=== PATIENT | male | born 1945 | race Caucasian/White ===

== ENCOUNTER 2017-01-25 05:31 | Day surgery (SDC) | payer OTHER ==
[~2017-01-25] VITALS: Ht 177.8 cm; Wt 88.9 kg
--- NOTE | ~2017-01-25 | O ---
[facility] [place] [address] OPERATIVE REPORT Name: JORDYN HUGHES Room #: DEP [facility]..#: [id number] Admission: 01/25/17 Attend Phys: Derian Angeles MD Discharge: 01/25/17 Date of : 41 Report #: [id number] THIS REPORT FOR: //name// CC: Nawaf Angeles DATE OF SERVICE: 01/25/2017 PATIENT OF: Dr. Derian Angeles and Dr. Nawaf Luke Jr. PREOPERATIVE DIAGNOSIS: Left inguinal hernia. POSTOPERATIVE DIAGNOSES: Left inguinal hernia with left cord lipoma. PROCEDURE: Left inguinal hernia repair with Prolene hernia system mesh and excision of left cord lipoma. SURGEON: Derian Angeles MD ANESTHESIA: Local IV sedation. DESCRIPTION OF PROCEDURE: The patient was brought to the operating room and placed on operative table in the supine position. Sequential compression devices were in place for DVT prophylaxis. There was no indication for preoperative antibiotics. The patient underwent IV sedation. Left inguinal area was then prepped and draped in a sterile fashion. Skin and subcutaneous tissue were then infiltrated with 0.5% Marcaine and 1% Xylocaine in a 1:1 mixture. A left inguinal skin incision was then performed using #10 scalpel blade. Hemostasis obtained using electrocautery as well as clamps and 2-0 chromic ties. Dissection was carried down to the external oblique fascia, which was then incised with a knife and opened with the Metzenbaum scissors. The ilioinguinal nerve was identified, dissected free and injected with a local mixture and preserved. The cord was then elevated and held into place with a Rumsey drain. Cremasteric muscle fibers were then split in the direction of their fibers using clamp and electrocautery. Two cord lipomas were identified, dissected free, clamped, excised and tied with 2-0 chromic ties. An indirect inguinal hernia sac was then identified and dissected free from the cord and reduced back into the preperitoneal space through the internal ring. An extended Prolene hernia system mesh was then inserted through the internal ring and the underlay patch was then deployed in the inguinal canal. The overlay patch was secured at the pubic tubercle superiorly and at the connector using simple interrupted 2-0 Vicryl sutures. The mesh was split and wrapped around the cord, secured to the inguinal ligament with simple interrupted 2-0 Vicryl suture. The cord and ilioinguinal nerve were then returned to the canal intact. The external oblique fascia was then closed using a running 2-0 Vicryl suture. [facility] [address] [place] [address] OPERATIVE REPORT Name: MAYURICRISSYJORDYN SIFUENTES Room #: DEP [facility].R.#: [id number] Admission: 01/25/17 Attend Phys: Derian Angeles MD Discharge: 01/25/17 Date of : 41 Report #: [id number] Irma's fascia was then reapproximated using 3 simple interrupted 2-0 chromic sutures and the skin then closed with a running 4-0 subcuticular Vicryl stitch. The wound was then dressed with Mastisol, 1/2-inch Steri-Strips cut in half, Telfa, 4 x 4 gauze, sponge and tape. The patient was then taken to the recovery room awake, alert and in good condition. Estimated blood loss was approximately 10 mL and the patient tolerated procedure well. All sponge, lap and instrument counts correct times 2. <ELECTRONICALLY SIGNED> By: Derian Angeles MD 01/28/17 1435 1255 [id number] Derian Angeles MD /nt
--- NOTE | ~2017-01-25 | S ---
[facility] [employer] [place] [address] SURGICAL PATH RPT PROCEDURE Name: ROVERTO YOU Room #: DEP [facility]..#: [id number] Admission: 01/25/17 Date of : 41 Discharge: 01/25/17 Report #: [id number] Path Case #: [id number] PATHOLOGY REPORT COLLECTION DATE: 01/25/2017 RECEIVED DATE: 01/28/2017 SUBMITTING PHYS: Dr. Derian Angeles OTHER PHYS: Dr. Nawaf Luke Jr. SPECIMEN(S) RECEIVED: A.Cord lipoma * * * * * * * * * * * * FINAL DIAGNOSIS: Mature adipose tissue, cord lipoma, excision: - Compatible with a lipoma. (IUV:csd; d/t: 01/29/2017) PATHOLOGIST: María Chapin M.D. REPORT ELECTRONICALLY SIGNED BY: María Chapin M.D. DATE/TIME: 01/29/2017 16:29 * * * * * * * * * * * * GROSS PATHOLOGY: Received in formalin labeled "Roverto You, cord lipoma," are multiple pieces of lobulated fibroadipose tissue measuring 6.5 x 2.9 x 1.8 cm in aggregate dimensions. Sectioning reveals homogeneous, bright yellow cut surfaces. [employer] sections are submitted in cassette A1. ([facility]; 01/28/2017) CLINICAL HISTORY: Left inguinal hernia INITIAL CPT CODE(S): A; 14284 Professional services performed by [facility] at [place] [address] [place] [address] Technical services performed by [facility] at [address] [place] [address], [address] [address]. [facility] [address] [place] [address] SURGICAL PATH RPT PROCEDURE Name: ROVERTO YOU Room #: DEP [facility] Daniel#: [id number] Admission: 01/25/17 Date of : 41 Discharge: 01/25/17 Report #: [id number] Path Case #: [id number] [facility] [address] [place] [id number] PHONE: [phone] DIRECTOR: Everett Centeno M.D. * * * END OF REPORT * * *
--- NOTE | ~2017-01-25 | EKG ---
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
[~2017-01-25 05:31] MED LIST: FISH OIL 1,001000 M2 PO; FLOMAX0.4 MG PO; IRBESARTAN150 MG PO; MULTIVITAMINS1 EAC7 PO; RAPAFLO8 MG PO
[2017-01-25 10:30] VITALS: BP 150/100
[2017-01-25] MEDS ORDERED: NORCO 5-325 TA1 EACH PO (13:02)
[2017-01-25 13:11] VITALS: BP 150/100
== END 2017-01-25 13:52 | disposition home or self-care (01) ==
LOC: OR 05:31 → TBA 05:31 → OR 08:12
DX: K40.90 Unilateral inguinal hernia, without obstruction or gangrene, not specified as recurrent (principal); D17.6 Benign lipomatous neoplasm of spermatic cord; I10 Essential (primary) hypertension; N40.0 Benign prostatic hyperplasia without lower urinary tract symptoms; J18.9 Pneumonia, unspecified organism; K57.30 Diverticulosis of large intestine without perforation or abscess without bleeding; Z98.890 Other specified postprocedural states
CPT/HCPCS: 50010; 50101; 50386; 50417; 54111; 56524; 56526; 56528; 62110; 62850; 70005